=== PATIENT | female | born 1985 | race Two or more races ===

== ENCOUNTER 2018-09-18 13:49 | Emergency (ER) | payer SELFPAY ==
[~2018-09-18] VITALS: Ht 152.4 cm; Wt 75.0 kg
[2018-09-18] MEDS ORDERED: TETANUS, DIPHTHERIA, PERTUSSIS VAC/PF 0.5ML (>7YR OLD) IM ONE (16:15)
[2018-09-18] MEDS ORDERED: BACITRACIN ZINC OINT UDPKT TOP ONE (16:15)
[2018-09-18 16:53] VITALS: BP 121/71
== END 2018-09-18 16:59 | disposition home or self-care (01) ==
LOC: ER 14:10
DX: S71.151A Open bite, right thigh, initial encounter (principal); F17.200 Nicotine dependence, unspecified, uncomplicated; W54.0XXA Bitten by dog, initial encounter; Y93.89 Activity, other specified; Y92.89 Other specified places as the place of occurrence of the external cause
CPT/HCPCS: 90471; 90715; 99283